=== PATIENT | female | born 2000 | race Asian ===

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

== ENCOUNTER → 2019-02-05 | Outpatient (CLI) | payer OTHER ==
[2019-02-05 09:10] LABS: PLATELET COUNT, AUTOMATED 312 K/uL (150-450)
== END ==
LOC: LAB 08:43
PROVIDERS: ATTEND Emergency Medicine
DX: Z00.00 Encounter for general adult medical examination without abnormal findings (principal); Z11.3 Encounter for screening for infections with a predominantly sexual mode of transmission
CPT/HCPCS: 36415; 82040; 82247; 82310; 82374; 82435; 82565; 82947; 84075; 84132; 84155; 84295; 84450; 84460; 84520; 85025; 86592; 86703; 86706; 86707; 86803; 87340; 87350